=== PATIENT | female | born 1935 | race Caucasian/White ===

== ENCOUNTER 2016-10-27 10:17 | Emergency (ER) | payer OTHER ==
[~2016-10-27 10:17] MED LIST: ACIPHEX PO; AMB10 PO; ASAB PO; ASCORBIC ACID PO; ASPIRIN 81 MG B8113 PO; ATEN25 PO; ATENOLOL PO; CENTRUM TAB1 TAB PO; CRESTOR40 MG PO; CRESTOR5 MG PO; DIGITEK0.25 MG PO; DYRENIUM50 MG PO; FE IV/IM; FISH OIL 1,2001 EAC2 PO; FISH OIL PO; FISH-EPA1000 MG PO; FLAG500TAB PO; FLAXSEED OIL OR; HYDROCHLOROT25 MG PO; LAN125 PO; LAN25 PO; MEGA625UDL PO; MONODOX100 MG PO; NORV5 PO; POT GLUCONAT595 M1 OR; PREMARIN PO; VITAMIN C PO; VITAMIN D31000 UNIT PO; VITC500 PO
[2016-10-27 14:57] LABS: ASCORBIC ACID (UR NOT ORDER) NEG (NEG); BILIRUBIN, URINE NEGATIVE (NEG); ER URINALYSIS TAT 0 Hrs 08 Mins; KETONE, URINE NEGATIVE (NEG); LEUKOCYTE ESTERASE(NOT OR NEG (NEG); NITRITE (URINE) NEG (NEG); WBC (NOT ORDERED) (RFLEX) 3 (0-5)
== END 2016-10-27 16:50 | disposition home or self-care (01) ==
LOC: ER 10:17
PROVIDERS: Emergency Medicine
DX: K56.41 Fecal impaction (principal); R33.9 Retention of urine, unspecified; I10 Essential (primary) hypertension; Z88.8 Allergy status to other drugs, medicaments and biological substances; Z79.899 Other long term (current) drug therapy; Z79.82 Long term (current) use of aspirin
CPT/HCPCS: 81001; 99284; A9270-GY